=== PATIENT | female | born 1950 | race Caucasian/White ===

== ENCOUNTER → 2019-03-26 | Outpatient (CLI) | payer OTHER ==
[~2019-03-26] MED LIST: BENTYL 20 MG TA20 M1 PO; CIPRO500 MG PO; FLOVENT HFA 2220 MCG INH; HYDROCHLOROTH12.5 M1 PO; LOTREL 5-40 MG1 EACH PO; PANTOPRAZOLE SO40 M1 PO; RALOXIFENE HCL60 MG PO; SINGULAIR 10 MG10 M1 PO; SYNTHROID150 MCG PO; ZORVOLEX18 MG PO
== END ==
LOC: M.CT 12:57
DX: Z13.6 Encounter for screening for cardiovascular disorders (principal)

== ENCOUNTER → 2019-07-10 | Outpatient (CLI) | payer OTHER ==
--- NOTE | 2019-07-10 17:35 | CARDNUC ---
[place] [address] CARDIAC NUCLEAR IMAGING REPORT Name: CAROLE BYRD Room: [facility]#: [id number] Admission: 07/10/19 Attend Phys: Marcus Garcia MD Discharge: Date of : 46 Date of Service: 07/10/19 1735 Report #: [id number] THIS REPORT FOR: //name// APPROVED REPORT Study performed: 07/10/2019 11:48:10 Exam: Nuclear Stress Test Indication: Increased Calcium Score Patient Location: Out-Patient Stress Tech: Sindy Shelby Stress Nurse: Augusta Ibrahim R.N. Ht: 5 ft 8 in Wt: 134 lbs BSA: 1.72 m2 BMI: 20.37 Medical History Medical History: LBBB, Increased Calcium Score, CAD non obstructive, HTN, Diabetes. Medications: Lisinopril, Metformin. Allergies: Benadryl, Codeine, Requip. Cardiac Risk Factors: Age, DM, FHX of CAD, HTN, LBBB, Increased Calcium Score. Previous Cardiac Procedures: LBBB Pretest Chest Pain Characteristics: No chest pain Exercise History: Indeterminate Physical Disabilities: LBBB Meds Held (24 hrs): None Stress Test Details Stress Test: Pharmacologic stress testing performed using 0.4 mg of regadenoson per 5 mL given IV over 10 seconds. Reason for pharmacologic stress test: LBBB. HR Resting HR: 64 bpm Max Heart Rate (APMHR): 150 bpm Max HR Achieved: 97 bpm Target HR (85% APMHR): 127 bpm % of APMHR: 64 Recovery HR: 90 bpm BP Resting BP: 152/92 mmHg Max BP: 148/75 [place] [address] CARDIAC NUCLEAR IMAGING REPORT Name: CAROLE BYRD Room: [facility]#: [id number] Admission: 07/10/19 Attend Phys: Marcus Garcia MD Discharge: Date of : 46 Date of Service: 07/10/19 1735 Report #: [id number] Resting ECG: Sinus Rhythm, LBBB Stress ECG: Sinus Rhythm, LBBB ST Change: None Arrhythmia: None Recovery ECG: Sinus Rhythm, LBBB Recovery ST Change: None Recovery Arrhythmia: None Clinical Reason for Termination: Completed protocol Stress Symptoms: Lightheaded, Headache, Throat and chest pressure. Exercise duration: 00 min 00 sec Exercise capacity: 1.00 METs The patient tolerated Lexiscan infusion without significant symptoms. Nurse Comments A 68 year old female presented with reported increased Calcium score and LBBB. Patient performed a sitting Lexiscan, well tolerated. Recovery unremarkable with PO caffeine, effective. Patient was escorted by staff to Nuclear Medicine for images. Patient was stable with no complaints at that time. Stress ECG Conclusion The baseline 12-lead EKG shows sinus rhythm with left bundle-branch block. EKGs obtained during and post Lexiscan infusion show sinus rhythm with left bundle-branch block. There were no stress-induced arrhythmias. NM EXAM: Myocardial Perfusion REST/STRESS Imaging Protocol: Rest Tc-99m/Stress Tc-99m 1 day Resting Data Rest SPECT myocardial perfusion imaging was performed in supine position 30 minutes following the intravenous injection of 10.6 mCi of Tc-99m Sestamibi. Time of rest injection: 10:05 The images were gated to evaluate regional wall motion and calculate left ventricular ejection fraction. Administration Route: IV Administration Site: Left AC Pharmacologic Stress Pharmacologic stress test was performed by injecting Regadenoson 0.4 mg IV push followed by the intravenous injection [place] 32[place] [address] CARDIAC NUCLEAR IMAGING REPORT Name: ROCHELLECAROLE Room: [facility]#: [id number] Admission: 07/10/19 Attend Phys: Marcus Garcia MD Discharge: Date of : 46 Date of Service: 07/10/19 1735 Report #: [id number] Tc-99m Sestamibi. Time of stress injection: 11:55 Administration Route: IV Administration Site: Left AC Heart Rate at time of stress injection: 97 bpm. Gated Stress SPECT was performed 40 minutes after stress injection. The images were gated to evaluate regional wall motion and calculate left ventricular ejection fraction. Prone imaging was performed. Study Quality Study: Good Artifact: No artifact Study Data At rest, the left ventricular ejection fraction was 71%.. Post stress, the left ventricular ejection was 66%.. TID = 1.14. Perfusion Perfusion images show uniform uptake of the radioisotope throughout the myocardium on both rest and stress images. Wall Motion There is a septal wall motion abnormality consistent with underlying bundle branch block. Global LV systolic function is normal. Nuclear Conclusion ECG Findings: non-diagnostic Clinical Findings: negative for ischemia Nuclear Findings: negative for ischemia Exercise Capacity: not assessed Left Ventricular Function: preserved Risk Study: low Myocardial perfusion images show no defect to suggest infarct or ischemia. Left ventricular systolic function appears preserved on gated studies. This is a low risk study. <Conclusion> The baseline 12-lead EKG shows sinus rhythm with left bundle-branch block. EKGs obtained during and post [place]isc[place] [address] CARDIAC NUCLEAR IMAGING REPORT Name: CAROLE BYRD Room: [facility]#: [id number] Admission: 07/10/19 Attend Phys: Marcus Garcia MD Discharge: Date of : 46 Date of Service: 07/10/19 1735 Report #: [id number] rhythm with left bundle-branch block. There were no stress-induced arrhythmias. <ELECTRONICALLY SIGNED> By: Tahir Green MD, FACC 07/10/19 1735 1735 173 Tahir Green MD, FACC /INF
== END ==
LOC: M.NUC 05-13 08:33 → M.CRD 05-31 09:00 → M.NUC 05-31 10:00 → M.CRD 06-12 09:00 → M.NUC 06-12 10:00 → M.CRD 09:00 → M.NUC 09:42
DX: I44.7 Left bundle-branch block, unspecified (principal); I25.10 Atherosclerotic heart disease of native coronary artery without angina pectoris; I10 Essential (primary) hypertension; E11.9 Type 2 diabetes mellitus without complications; Z79.899 Other long term (current) drug therapy; Z88.8 Allergy status to other drugs, medicaments and biological substances

== ENCOUNTER 2020-09-27 09:41 | Observation (INO) | payer OTHER ==
[~2020-09-27] VITALS: Ht 172.7 cm; Wt 61.2 kg
[2020-09-27 09:46] VITALS: BP 119/65
[2020-09-27] MEDS ORDERED: PROTONIX40 M2 PO (09:49)
[2020-09-27] MEDS ORDERED: SINGULAIR 10 MG10 M1 PO (09:49)
[2020-09-27] MEDS ORDERED: FLONASE 0.05%50 MCG NARES (09:49)
[2020-09-27] MEDS ORDERED: SYNTHROID150 MCG PO (09:49)
[2020-09-27] MEDS ORDERED: ZESTRIL40 MG PO (09:50)
[2020-09-27] MEDS ORDERED: METFORMIN HCL500 M3 PO (09:50)
[2020-09-27] MEDS ORDERED: EVISTA60 MG PO (09:50)
[2020-09-27] MEDS ORDERED: TRAZODONE HCL50 MG PO (09:50)
[2020-09-27] MEDS ORDERED: CLARITIN10 M3 (09:51)
[2020-09-27] MEDS ORDERED: CENTRUM SILVER1 EAC5 PO (09:51)
[2020-09-27] MEDS ORDERED: CALCIUM (09:51)
[2020-09-27] MEDS ORDERED: OCUVITE TABLET1 EAC1 PO (09:52)
[2020-09-27] MEDS ORDERED: FISH OIL 1,0001 EAC9 PO (09:52)
[2020-09-27] MEDS ORDERED: MIRALAX17 G1 PO (09:52)
[2020-09-27] MEDS ORDERED: COLACE100 MG PO (09:52)
[2020-09-27] MEDS ORDERED: MUCINEX600 MG PO (09:52)
[2020-09-27] MEDS ORDERED: VITAMIN D350 MC4 PO (09:53)
[2020-09-27] MEDS ORDERED: TURMERIC500 M2 PO (09:53)
[2020-09-27] MEDS ORDERED: VITAMINC500 PO (09:53)
[2020-09-27] MEDS ORDERED: GLUCOSAMINE &1 EACH PO (09:54)
[2020-09-27] MEDS ORDERED: PROBIOTIC1 EAC7 PO (09:54)
[2020-09-27 10:17] LABS: URINE BILIRUBIN NEGATIVE (Negative); URINE BLOOD NEGATIVE (Negative); URINE CLARITY CLEAR; URINE COLOR YELLOW; URINE GLUCOSE-RANDOM NEGATIVE (Negative); URINE KETONES NEGATIVE (Negative); URINE LEUKOCYTES-REFLEX NEGATIVE (Negative); URINE NITRITE-REFLEX NEGATIVE (Negative); URINE PROTEIN NEGATIVE (Negative); URINE UROBILINOGEN 0.2 E.U./dl (0.2-1.0)
[2020-09-27 11:02] LABS: ABSOLUTE BASOPHILS 0.1 thou/uL (0.0-0.2); ABSOLUTE EOSINOPHILS 0.1 thou/uL (0.0-0.7); ABSOLUTE LYMPHOCYTES 1.1 thou/uL (0.8-5.3); ABSOLUTE MONOCYTES 0.3 thou/uL (0.0-1.2); ABSOLUTE NEUTROPHILS 5.6 thou/uL (1.6-8.1); BASOPHILS 0.8 %; EOSINOPHILS 0.9 %; HEMATOCRIT 42.9 % (37.0-47.0); HEMOGLOBIN 14.1 gm/dL (12.0-15.0); MCH 29.4 pg (26.0-34.0); MCHC 32.8 g/dL (28.0-37.0); MCV 89.8 fL (80.0-100.0); MONOCYTES 4.7 %; MPV 7.4 fl. (7.2-11.1); NUCLEATED RBCS 0 /100WBC; PLATELET COUNT* 263 thou/uL (150-400); POLYS 78.6 %; RBC 4.77 mil/uL (4.20-5.00); RDW-CV 14.4 % (10.5-14.5); WBC 7.2 thou/uL (4.0-11.0)
[2020-09-27 11:16] LABS: APTT 23.9 Seconds (25.0-31.3); PROTIME 10.3 Seconds (9.20-11.50)
[2020-09-27 11:19] LABS: CALCIUM 8.8 mg/dL (8.5-10.1); CREATININE 0.8 mg/dL (0.6-1.3); POTASSIUM 4.1 mmol/L (3.5-5.1)
[2020-09-27 11:23] LABS: ALBUMIN 3.2 g/dL (3.4-5.0); TOTAL BILIRUBIN 0.2 mg/dL (<0.1-1.0); TOTAL PROTEIN 6.2 g/dL (6.4-8.2)
[2020-09-27 16:32] VITALS: BP 148/73
[2020-09-28 00:02] VITALS: BP 162/74
[2020-09-28 03:46] LABS: CHOLESTEROL 179 mg/dL (<200); HDL CHOLESTEROL 103 mg/dL (>40); LDL CHOLESTEROL 59 mg/dL (<100); TC:HDL 1.7 Ratio (Not establshd); TRIGLYCERIDE 85 mg/dL (<150); VLDL 17 mg/dL (<40)
[2020-09-28 03:54] LABS: SERUM ASSESSMENT Clear
[2020-09-28 04:03] VITALS: BP 153/78
[2020-09-28 08:30] VITALS: BP 140/70
[2020-09-28 08:49] VITALS: BP 158/77
[2020-09-28 12:48] VITALS: BP 158/77
--- NOTE | 2020-09-28 13:32 | 2DMMODE ---
[place] [address] 2 D/M-MODE ECHOCARDIOGRAM Name: CAROLE BYRD Room: [address] Jae Henry#: [id number] Admission: 09/27/20 Attend Phys: Marie Caal, Discharge: Date of : 46 Date of Service: 09/28/20 1331 Report #: [id number] THIS REPORT FOR: cc: Shawanda Jackson,Shawanda Chapman,Marcus Meza MD [facility] ~ APPROVED REPORT Study performed: 09/28/2020 10:28:38 EXAM: Comprehensive 2D, Doppler, and color-flow Echocardiogram Patient Location: In-Patient Room #: [facility] [place] Status: routine BSA: 1.73 HR: 55 bpm BP: 158/77 mmHg Rhythm: NSR Other Information Study Quality: Good Indications Abnormal ECG 2D Dimensions IVSd: 12.86 (7-11mm) LVOT Diam: 18.95 (18-24mm) LVDd: 37.23 mm PWd: 10.68 (7-11mm) LVDs: 22.62 (25-40mm) Aortic Root: 32.22 mm Volumes Left Atrial Volume (Systole) LA ESV Index: 21.80 mL/m2 Aortic Valve AoV Peak Igor.: 1.45 m/s AO Peak Gr.: 8.46 mmHg LVOT Max P.48 mmHg AO Mean Gr.: 4.82 mmHg LVOT Mean P.78 mmHg LVOT Max V: 1.17 m/s AO V2 VTI: 27.12 cm LVOT Mean V: 0.77 m/s NIRMAL (VTI): 2.37 cm2 LVOT V1 VTI: 22.82 [place] [address] 2 D/M-MODE ECHOCARDIOGRAM Name: ROCHELLECAROLE Room: [address] M.R.#: [id number] Admission: 09/27/20 Attend Phys: Marie Caal, Discharge: Date of : 46 Date of Service: 09/28/20 1331 Report #: [id number] Mitral Valve E/A Ratio: 0.65 MV Decel. Time: 174.04 ms MV E Max Igor.: 0.61 m/s MV PHT: 50.47 ms MVA (PHT): 4.36 cm2 TDI E/Lateral E': 8.71 E/Medial E': 10.17 Medial E' Igor.: 0.06 m/s Lateral E' Igor.: 0.07 m/s Pulmonary Valve PV Peak Igor.: 1.07 m/s PV Peak Gr.: 4.57 mmHg Left Ventricle The left ventricle is normal size. There is normal LV segmental wall motion. There is normal left ventricular wall thickness. Left ventricular systolic function is normal. The left ventricular ejection fraction is within the normal range. LVEF is 55-60%. Grade I - abnormal relaxation pattern. Right Ventricle The right ventricle is normal size. The right ventricular systolic function is normal. Atria The left atrium size is normal. The right atrium size is normal. Aortic Valve Mild aortic valve sclerosis. No aortic regurgitation is present. There is no aortic valvular stenosis. Mitral Valve The mitral valve is normal in structure. There is no mitral valve regurgitation noted. No evidence of mitral valve stenosis. Tricuspid Valve The tricuspid valve is normal in structure. Unable to assess PA pressure. Trace tricuspid regurgitation. Pulmonic Valve The pulmonary valve is normal in structure. There is no pulmonic [place] [address] 2 D/M-MODE ECHOCARDIOGRAM Name: CAROLE BYRD Room: [address]#: [id number] Admission: 09/27/20 Attend Phys: Marie Caal, Discharge: Date of : 46 Date of Service: 09/28/20 1331 Report #: [id number] Great Vessels The aortic root is normal in size. IVC is normal in size and collapses >50% with inspiration. Pericardium There is no pericardial effusion. <Conclusion> Left ventricular systolic function is normal. The left ventricular ejection fraction is within the normal range. <ELECTRONICALLY SIGNED> By: Marcus Garcia MD, FACC 09/28/20 133 30 30 Marcus Garcia MD, FAC /INF
--- NOTE | 2020-09-28 13:46 | EKG ---
[place] [address] ELECTROCARDIOGRAM REPORT Name: CAROLE BYRD Room: [address] M.R.#: [id number] Admission: 09/27/20 Attend Phys: Marie Caal, Discharge: 09/28/20 Date of : 46 Date of Service: 09/27/20 0950 Report #: [id number] THIS REPORT FOR: //name// [facility] ED Test Date: 2020-09-27 Test Time: 09:50:25 Pat Name: CAROLE BYRD Department: Room: [facility] Gender: F Intelligence Chief: CCD : [id number] Requested By: Bacilio Rodriguez Order Number: [id number] MD: Marcus Garcia Measurements Intervals [place] Rate: 67 P: 29 MT: 180 QRS: -44 QRSD: 143 T: 90 QT: 470 QTc: 497 Interpretive Statements Sinus rhythm Left bundle branch block Compared to ECG 05/31/2015 11:59:22 No significant changes Electronically Signed On 09-28-2020 13:46:09 PERIODONTAL ASSISTANT by Marcus Garcia [email or web address] <ELECTRONICALLY SIGNED> By: Marcus Garcia MD, [facility] 09/28/20 1346 0950 0950 Marcus Garcia MD, [facility] /EPI
--- NOTE | 2020-09-28 14:58 | CON ---
[address] [address] CONSULTATION Name: CAROLE BYRD Room: [address] Jae Henry#: [id number] Admission: 09/27/20 Attend Phys: Marie Caal MD Discharge: 09/28/20 Date of : 46 Report #: [id number] THIS REPORT FOR: cc: Shawanda Jackson Anna S. DO ~ Marcus Garcia MD [facility] DATE OF SERVICE: 09/27/2020 CARDIOLOGY CONSULTATION HISTORY OF PRESENT ILLNESS: The patient is a 69-year-old single white female who I was asked to see in the hospital today after she had a syncopal spell. The patient states that a couple of years ago, she was noted to have an abnormal coronary artery calcium score. I saw her in consultation because of a left bundle branch block. She apparently underwent pharmacologic nuclear stress test that showed no evidence of ischemia. She has done well since that time, works out on a regular basis. She notes a few years ago, she had a syncopal spell and was found to be anemic. She was found to have a bleeding polyp in her stomach. She has had no further bleeding since that time. She has been feeling well until today. She was at [employer] when she stood up. She felt lightheaded and diaphoretic. She apparently fell down and hit her head. She was brought here to [place] and admitted for further evaluation and treatment. On the monitor, she was noted to be sinus bradycardia. She denied any recent vomiting, diarrhea, or blood in stool. She has had no recent fever, cough, lack of appetite. She apparently did have breakfast this morning. She does check her blood sugars at home and it was normal this morning. She denies a history of exertional chest tightness, palpitations. PAST MEDICAL HISTORY: She has had previous hysterectomy, cholecystectomy, hemicolectomy that was nonmalignant lipoma removal. She has implantation of Medtronic stimulator for chronic back pain. She has a history of hypertension, diabetes. MEDICATIONS: Include Synthroid, nasal spray for allergies. If these metformin, lisinopril, trazodone for sleep. ALLERGIES: SHE HAS ALLERGY TO CODEINE. ROPINIROLE. FAMILY HISTORY: Her father had a heart attack. SOCIAL HISTORY: She is , lives in [place] by herself. No smoking or alcohol abuse. REVIEW OF SYSTEMS: No history of stroke, asthma, liver disease, kidney disease, [place] [address] CONSULTATION Name: CAROLE BYRD Room: [address] Jae Henry#: [id number] Admission: 09/27/20 Attend Phys: Marie Caal MD Discharge: 09/28/20 Date of : 46 Report #: [id number] cancer, psychiatric illness, chronic skin condition. PHYSICAL EXAMINATION: GENERAL: Revealed an elderly female lying in stretcher, appeared in no acute distress. VITAL SIGNS: Blood pressure 120/60, pulse 70. She is afebrile. HEENT: She was anicteric. Conjunctivae are pink. Mucous membranes moist. NECK: Veins nondistended. No carotid bruits. Neck supple. CHEST: Clear to auscultation. CARDIOVASCULAR: Regular rate and rhythm. No significant murmur. ABDOMEN: Soft. EXTREMITIES: Had no edema. Dorsalis pedis pulse 2+ bilaterally. SKIN: Cool and dry. NEUROLOGIC: Nonfocal. LYMPH: No adenopathy. MUSCULOSKELETAL: No joint effusion. RADIOLOGICAL DATA: ECG shows a sinus rhythm, left axis deviation and a left bundle branch block, which was old. Her workup in the Emergency Room today, she actually had a CT scan of the head performed without contrast that showed no acute abnormality. He had a chest x-ray in the Emergency Room today that showed no acute abnormality. LABORATORY WORK: In the Emergency Room today that revealed sodium 139, creatinine 0.8, glucose 121. Liver function studies were normal. Troponin 0.06. BNP 174. White blood cell count 7.2, hemoglobin 14.1. Her COVID antigen test is pending. She had a urinalysis that was negative for blood. IMPRESSION AND RECOMMENDATIONS: 1. Syncope. Suspect vasovagal. Recommend to avoid dehydration. I would check echocardiogram. I will consider discharge the patient with an event recorder. 2. Sinus bradycardia. I would avoid beta-blockers. 3. Coronary artery disease. Previous abnormal coronary calcium score and no history of angina. 4. Diabetes. The patient is on oral medications. 5. Hypertension. The patient is on an DISHA inhibitor. 6. Chronic back pain. The patient has a nerve stimulator in place. <ELECTRONICALLY SIGNED> By: Marcus Garcia MD, FACC 09/28/20 1458 1239 [id number] Derrick Garcia MD, FACC /nt
== END 2020-09-28 13:30 | disposition home or self-care (01) ==
LOC: M.ERS 09:41 → M.TBA-ER 12:24 → M.2W 09-28 09:09
PROVIDERS: Emergency Medicine Emergency Medical Services; Internal Medicine Cardiovascular Disease; ADMIT Internal Medicine; ATTEND Internal Medicine
DX: R55 Syncope and collapse (principal); R00.1 Bradycardia, unspecified; E11.9 Type 2 diabetes mellitus without complications; E03.9 Hypothyroidism, unspecified; I10 Essential (primary) hypertension; G89.29 Other chronic pain; Z79.84 Long term (current) use of oral hypoglycemic drugs; Z79.899 Other long term (current) drug therapy; Z20.828 Contact with and (suspected) exposure to other viral communicable diseases